=== PATIENT | male | born 1960 | race Caucasian/White ===

== ENCOUNTER 2020-06-26 09:50 | Inpatient (IN) ==
[~2020-06-26 09:50] MED LIST: Povidone-Iodine 45 ML, Sodium Chloride IRRigation 1,000 ML IR ONE
[2020-06-26] MEDS ORDERED: Ethanol\\Acetic Acid\\Na Ace\\Ben 1,000 ML IRRIG.SOLN IR ONE (09:55)
[2020-06-26] MEDS ORDERED: Vancomycin 1,000 MG VIAL ONE (09:55)
[2020-06-26] MEDS ORDERED: Lidocaine HCL 4 ML Topical Solution (Laryng-O-Jet Kit Sterile Pak) TP ONE (10:06)
[2020-06-26] MEDS ORDERED: *HR* FentaNYL (PF) 100 MCG/2 ML VIAL ONE (10:09)
[2020-06-26] MEDS ORDERED: Dexamethasone 4 MG/ML VIAL ONE (10:10)
[2020-06-26] MEDS ORDERED: Lidocaine -MPF 2% 2 ML VIAL ONE ×2 (10:10→10:25)
[2020-06-26] MEDS ORDERED: CeFAZolin Syr 2,000MG/20 ML 2,000 MG/20 ML SYRINGE IVPB ONE (10:10)
[2020-06-26] MEDS ORDERED: *HR* Rocuronium Bromide 50 MG/5 ML VIAL ONE (10:10)
[2020-06-26] MEDS ORDERED: *HR* Midazolam HCl 2 MG/2 ML VIAL ONE (10:10)
[2020-06-26] MEDS ORDERED: *HR* Propofol 200 MG/20 ML VIAL IVP ONE (10:10)
[2020-06-26] MEDS ORDERED: Ondansetron 4 MG/2 ML VIAL ONE (10:10)
[2020-06-26] MEDS ORDERED: *HR* Succinylcholine 200 MG/10 ML VIAL IVP ONE (10:10)
[2020-06-26] MEDS ORDERED: Ringers Solution, Lactated 1,000 ML IVC SCH ×2 (10:15→13:53)
[2020-06-26] MEDS ORDERED: ROPIVACAINE/PF/NS 0.25% 1 EACH SYRINGE INTRAART ONE (10:24)
[2020-06-26] MEDS ORDERED: Ropivacaine/PF 0.5% 30 ML VIAL ONE (10:24)
[2020-06-26] MEDS: Aspirin 81 MG TAB.CHEW PO ONE ×2 (10:40→10:41)
[2020-06-26] MEDS ORDERED: *HR* OxyCODONE Immed Rel 5 MG TABLET PO PRN ×2 (11:10→13:53)
[2020-06-26] MEDS ORDERED: Ondansetron 4 MG/2 ML VIAL IVP PRN ×2 (11:10→13:53)
[2020-06-26] MEDS ORDERED: Famotidine 20 MG/2 ML VIAL IVP ONE (11:10)
[2020-06-26] MEDS ORDERED: Promethazine Syrup 6.25 MG/5 ML PO PRN (11:10)
[2020-06-26] MEDS ORDERED: *HR* Labetalol 20 MG/4 ML SYRINGE IVP PRN (11:10)
[2020-06-26] MEDS ORDERED: *HR* HYDROmorphone PF 0.5 MG/0.5 ML SYRINGE IVP PRN (11:10)
[2020-06-26] MEDS ORDERED: Sugammadex Sodium 200 MG/2 ML VIAL IV ONE (12:41)
[2020-06-26] MEDS ORDERED: *HR* PHENYLEPHRINE 1,000 MCG/10 ML SYRINGE IVP ONE (12:54)
[2020-06-26 13:47] LABS: Hemoglobin 13.1 g/dL (12.9-16.9)
[2020-06-26 13:53] VITALS: BP 117/90
[2020-06-26] MEDS ORDERED: Sennosides 8.6 MG TABLET PO PRN (13:53)
[2020-06-26] MEDS ORDERED: Dextrose Gel 15 GM/37.5 ML TUBE PO PRN ×2 (13:53)
[2020-06-26] MEDS ORDERED: *HR* OxyCODONE/APAP 5/325 TABLET PO PRN (13:53)
[2020-06-26] MEDS ORDERED: *HR* Dextrose 50 % in Water (Vial) 50 ML VIAL IVP PRN (13:53)
[2020-06-26] MEDS ORDERED: Insulin LISPRO 300 UNITS/3 ML VIAL SQ SCH ×2 (13:53→21:00)
[2020-06-26] MEDS ORDERED: MOM Conc 10 ML UD.LIQ PO PRN (13:53)
[2020-06-26] MEDS ORDERED: Naloxone 0.4 MG/ML INJ IVP PRN (13:53)
[2020-06-26] MEDS ORDERED: D5% in Water 1,000 ML IVC PRN (13:53)
[2020-06-26] MEDS ORDERED: ceFAZolin 2,000 MG in 0.9 % Sodium Chloride 100 ML IVPB ONE (14:19)
[2020-06-26] MEDS ORDERED: *HR* Enoxaparin 30 MG/0.3 ML SYRINGE SQ ONE (15:28)
[2020-06-26] MEDS ORDERED: CeFAZolin 2 GM/120 ML BAG IVPB SCH (16:30)
[2020-06-26] MEDS ORDERED: *HR* Enoxaparin 30 MG/0.3 ML SYRINGE SQ SCH ×2 (18:00)
[2020-06-26] MEDS ORDERED: *HR* Metformin 500 MG TABLET PO SCH (21:00)
[2020-06-26] MEDS ORDERED: traZODone 50 MG TABLET PO SCH (21:00)
[2020-06-27] MEDS ORDERED: amLODIPine 5 MG TABLET PO SCH (09:00)
[2020-06-27] MEDS ORDERED: Venlafaxine XR (24 HR) 75 MG CAP.ER.24H PO SCH (09:00)
[2020-06-27] MEDS ORDERED: Venlafaxine XR (24 HR) 150 MG CAP.ER.24H PO SCH (09:00)
[2020-06-27] MEDS ORDERED: QUEtiapine Fumarate 100 MG TABLET PO SCH (09:00)
== END 2020-06-26 16:48 | disposition home health service (06) | DRG 322 ==
LOC: SAMDAY 09:50 → 3NENU 13:53
PROVIDERS: ADMIT Orthopaedic Surgery; ATTEND Orthopaedic Surgery